=== PATIENT | female | born 1960 | race Hispanic/Latino ===

== ENCOUNTER 2023-10-02 02:16 | Emergency (ER) | payer SELFPAY ==
[2023-10-02 02:54] LABS: Absolute Eosinophils 0.2 K/uL (0-0.5); Absolute Lymphocytes (CBC) 1.5 K/uL (0.7-4.9); Absolute Monocytes 0.8 K/uL (0.1-1.3); Absolute Neutrophil 3.7 K/uL (1.8-8.0); Basophils % 0.5 % (0-1.3); Eosinophils % 3.6 % (0-4.4); Hematocrit 43.8 % (36.0-45.0); Hemoglobin 14.6 g/dL (12.0-15.0); MCH 31.1 pg (27.0-35.0); MCHC 33.4 g/dL (32.0-36.0); MCV 93.3 fL (80-100); MPV 11.2 fL (7.6-11.3); Neutrophils % 58.9 % (41.7-73.7); Nucleated Red Blood Cells % 0.2 % (0-0); Platelets 154 thou/uL (152-406); Red Cell Distribution Width 13.4 % (12.1-15.2)
[2023-10-02] MEDS ORDERED: NA CHLORIDE 0.9% 2,000 ML ONE (03:06)
[2023-10-02 03:21] LABS: ALT/SGPT 19 U/L (13-56); Albumin 3.6 g/dL (3.4-5.0); Albumin/Globulin Ratio 0.9 (1.1-1.8); Alkaline Phosphatase 192 U/L (45-117); Anion Gap 9.1 mEq/L (5.0-15.0); BUN Blood Urea Nitrogen 10 mg/dL (7-18); Bicarbonate 26 mEq/L (21-32); Bilirubin Total 0.5 mg/dL (0.2-1.0); Creatine Phosphokinase 75 U/L (26-192); Globulin 3.9 g/dL (2.3-3.5); Glomerular Filtration Rate 94 ml/min (=/>90); Glucose Level 326 mg/dL (74-106); NT PRO-BNP 89 pg/mL (<125); Protein, Total 7.5 g/dL (6.4-8.2); Sodium Level 133 mEq/L (136-145); Troponin High Sensitivity 4.6 pg/mL (<58.9)
[2023-10-02 03:22] LABS: AST/SGOT 32 U/L (15-37); Bilirubin Direct < 0.2 mg/dL (0-0.2); Bilirubin Indirect, Calculated 0.3 mg/dL (0.2-0.8); Magnesium 2.1 mg/dL (1.6-2.4); Potassium 4.1 mEq/L (3.5-5.1)
[2023-10-02 04:13] LABS: Blood Morphology Comment NOT SEEN (NOT SEEN); Platelet Estimate ADEQ; White Blood Cell Scan OK (OK)
[2023-10-02] MEDS ORDERED: INSULIN REGULAR (HUMAN) 100 UNIT/ML ONE (07:36)
[2023-10-02 07:43] LABS: Thyroid Stimulating Hormone 1.33 uIU/mL (0.358-3.740)
--- NOTE | 2023-10-02 08:53 | RAD REPORT ---
EXAM DESCRIPTION: CT - Chest For Pe Angio - 10/02/2023 7:44 am CLINICAL HISTORY: CHEST PAIN COMPARISON: No comparisons TECHNIQUE: Thin axial CT images of the chest were obtained following administration of iodinated co ntrast intravenously. Multiplanar reconstructions, and maximum intensity projection reconstructions w ere generated and reviewed. Exam utilizes a protocol for optimal evaluation of pulmonary arterial lauren e. All CT scans are performed using dose optimization technique as appropriate and may include automated exposure control or mA/KV adjustment according to patient size. FINDINGS: Incidentally noted left lower pole 3.4 x 2.2 cm heterogeneous thyroid nodule with retroste rnal extension. Pulmonary arteries are normal. No emboli or other suspicious finding. No acute or significant aorta f indings. No mass or infiltrate in the lung parenchyma. No pleural thickening or pleural effusion. No pneumotho rax. No abnormal mediastinal or hilar masses or lymphadenopathy seen. No chest wall mass or abnormal axill iary lymphadenopathy. IMPRESSION: No evidence of acute central pulmonary emboli. Incidentally noted left lower pole 3.4 x 2.2 cm heterogeneous thyroid nodule with retrosternal extens ion, can be further evaluated by dedicated thyroid ultrasound on an outpatient basis, if not previous ly performed. Negative CT scan of the chest for other significant findings.
--- NOTE | 2023-10-02 10:45 | ER ---
Nurse's Notes [facility] Name: Aisha Marquis Age: 62 yrs Sex: Female : 1960 Arrival Date: 10/02/2023 Time: 02:16 Bed 7 Private MD: Diagnosis: Tremor, unspecified;Diabetes mellitus due to underlying condition with hyperglycemia;Thyroid nodule Presentation: 10/01 02:19 Chief complaint: EMS states: Cousin heard her scream then found her on the ground vc1 shaking and foaming at the mouth. 02:19 Coronavirus screen: Client denies travel out of the [place] in the last 14 days. At this vc1 time, the client does not indicate any symptoms associated with coronavirus-19. Ebola Screen: Patient negative for fever greater than or equal to 101.5 degrees Fahrenheit, and additional compatible Ebola Virus Disease symptoms Patient denies exposure to infectious person. Patient denies travel to an Ebola-affected area in the 21 days before illness onset. No symptoms or risks identified at this time. Initial Sepsis Screen: Does the patient meet any 2 criteria? No. Patient's initial sepsis screen is negative. Does the patient have a suspected source of infection? No. Patient's initial sepsis screen is negative. Risk Assessment: Do you want to hurt yourself or someone else? Patient reports no desire to harm self or others. Onset of symptoms was October 02, 2023. 02:19 Method Of Arrival: EMS: [facility] vc1 02:19 Acuity: ROXANNA 3 vc1 02:36 Note Pt states she had 1 seizure a year ago but does not take medicine for them. vc1 Triage Assessment: 02:20 General: Appears comfortable, Behavior is calm, cooperative. Pain: Denies pain. Neuro: ha1 Level of Consciousness is awake, alert, obeys commands, Oriented to person, place, time, situation, Moves all extremities. Full function Pupils are PERRLA, Reports seizure activity states " I do not remember having one but my family members told me I did had one.". Cardiovascular: Capillary refill < 3 seconds Patient's skin is warm and dry. Rhythm is sinus rhythm. Respiratory: Airway is patent Respiratory effort is even, unlabored, Respiratory pattern is regular, symmetrical. GI: Abdomen is round non-distended. : No signs and/or symptoms were reported regarding the genitourinary system. Derm: Skin is pink, warm \\T\\ dry. Musculoskeletal: Circulation, motion, and sensation intact. Range of motion: intact in all extremities. Historical: - Allergies: 02:34 No Known Allergies; vc1 - Home Meds: 02:34 Cinnamon 500 mg oral capsule [Active]; vc1 - PMHx: 02:34 Diabetes mellitus; Hypertensive disorder; vc1 - PSHx: 02:34 None; vc1 - Immunization history:: Adult Immunizations unknown. - Infectious Disease History:: Denies. - Family history:: not pertinent. - Social history:: Smoking status: Patient denies any tobacco usage or history of. Screenin:20 [facility] ED Fall Risk Assessment (Adult) History of falling in the last 3 months, ha1 including since admission No falls in past 3 months (0 pts) Confusion or Disorientation No (0 pts) Intoxicated or Sedated No (0 pts) Impaired Gait No (0 pts) Mobility Assist Device Used No (0 pt) Altered Elimination No (0 pt) Score/Fall Risk Level 0 - 2 = Low Risk Oriented to surroundings, Maintained a safe environment, Educated pt \\T\\ family on fall prevention, incl call for assistance when getting out of bed, Hourly rounding (assess needs \\T\\ fall precautionary measures) done. Abuse screen: Denies threats or abuse. Denies injuries from another. Nutritional screening: No deficits noted. Tuberculosis screening: No symptoms or risk factors identified. Assessment: 02:20 Reassessment: see triage assessment. ha1 03:20 Reassessment: Patient and/or family updated on plan of care and expected duration. Pain ha1 level reassessed. Patient is alert, oriented x 3, equal unlabored respirations, skin warm/dry/pink. Patient denies pain at this time. 04:20 Reassessment: Patient and/or family updated on plan of care and expected duration. Pain ha1 level reassessed. Patient is alert, oriented x 3, equal unlabored respirations, skin warm/dry/pink. 05:20 Reassessment: Patient and/or family updated on plan of care and expected duration. Pain ha1 level reassessed. Patient is alert, oriented x 3, equal unlabored respirations, skin warm/dry/pink. 06:20 Reassessment: Patient and/or family updated on plan of care and expected duration. Pain ha1 level reassessed. Patient is alert, oriented x 3, equal unlabored respirations, skin warm/dry/pink. 07:05 Reassessment: NOTIFIED DR. COLUNGA OF GLUCOSE LEVEL. ha1 07:20 Reassessment: Patient is alert, oriented x 3, equal unlabored respirations, skin aa5 warm/dry/pink. Pt denies any symptoms or complaints. . 07:35 Reassessment: PT to CT via stretcher . aa5 07:55 Reassessment: Pt back from CT scan . aa5 07:55 Reassessment: Patient is alert, oriented x 3, equal unlabored respirations, skin aa5 warm/dry/pink. Patient denies pain at this time. Denies any symptoms/complaints. . 08:00 Reassessment: Pt assisted with bedpan, voided 500mls. . aa5 08:14 Reassessment: Patient is alert, oriented x 3, equal unlabored respirations, skin aa5 warm/dry/pink. Patient denies pain at this time. 09:05 Reassessment: Patient is alert, oriented x 3, equal unlabored respirations, skin aa5 warm/dry/pink. Patient denies pain at this time. Vital Signs: 02:19 BP 162 / 88; Pulse 129; Resp 20; Temp 98.7; Pulse Ox 97% ; Height 5 ft. 2 in. ; vc1 02:45 BP 125 / 94; Pulse 117; Resp 19 S; Pulse Ox 98% on R/A; ha1 03:50 BP 137 / 88; Pulse 105; Resp 19 S; Pulse Ox 98% on R/A; ha1 04:20 BP 142 / 81; Pulse 103; Resp 17 S; Pulse Ox 98% on R/A; ha1 05:20 BP 138 / 78; Pulse 99; Resp 16 S; Pulse Ox 94% on R/A; ha1 05:45 BP 125 / 74; Pulse 90; Resp 17; Pulse Ox 95% on R/A; ha1 06:45 BP 144 / 81; Pulse 63; Resp 17 S; Pulse Ox 97% on R/A; ha1 08:00 BP 130 / 74; Pulse 96; Resp 16 S; Pulse Ox 98% on R/A; aa5 09:10 BP 110 / 71; Pulse 89; Resp 18 S; Pulse Ox 99% on R/A; aa5 11:15 BP 130 / 78; Pulse 100; Resp 22; Temp 97.9; Pulse Ox 98% on R/A; kj2 Carrol Coma Score: 02:19 Eye Response: spontaneous(4). Motor Response: obeys commands(6). Verbal Response: ha1 oriented(5). Total: 15. ED Course: 02:18 Patient arrived in ED. jj6 02:19 Patient has correct armband on for positive identification. Placed in gown. Bed in low ha1 position. Call light in reach. Side rails up X2. Adult w/ patient. Seizure precautions initiated. 02:20 Yinka Colunga MD is Attending Physician. sp4 02:20 Maintain EMS IV. Dressing intact. Good blood return noted. Site clean \\T\\ dry. Gauge \\T\\ good 1 site: 20 G LAC. 02:20 Arm band placed on right wrist. ha1 02:20 EKG completed in triage. Results shown to MD. ha1 02:20 Client placed on continuous cardiac and pulse oximetry monitoring. NIBP monitoring ha1 applied. quality assurance monitor body on. 02:20 Door closed. Noise minimized. Lights dimmed. Warm blanket given. Pillow given. ha1 02:34 Triage completed. vc1 02:36 Basic Metabolic Panel Sent. ha1 03:01 XRAY Chest (1 view) In Process Unspecified. EDMS 03:04 X-ray completed. Portable x-ray completed in exam room. Patient tolerated procedure mh1 well. 03:09 CT Head Brain wo Cont In Process Unspecified. EDMS 03:39 Mari Bethea, RN is Primary Nurse. ha1 03:53 Provided Education on: seizure precaution . ha1 04:39 Assisted with bedpan. bm8 07:06 Report given to Malcolm RN. bm8 07:20 Inserted saline lock: 20 gauge in right antecubital area, using aseptic technique. aa5 ,using aseptic technique. IV started for CT. 07:46 CT Chest For PE Angio In Process Unspecified. EDMS 10:00 Report given to [place] Allen. aa5 11:08 No provider procedures requiring assistance completed. IV discontinued, intact, kj2 bleeding controlled, No redness/swelling at site. Pressure dressing applied. Administered Medications: 03:12 Drug: NS 0.9% IV 1000 ml IV at 125 ml/hr continuous Route: IV; Rate: 125 ml/hr; Site: ha1 left antecubital; 11:14 Follow up: IV Status: Completed infusion; IV Intake: 1000ml cm10 03:12 Drug: NS 0.9% IV 1000 ml IV at 1 bolus Per protocol; 1000 mL bolus Route: IV; Rate: 1 ha1 bolus; Site: left antecubital; 11:14 Follow up: IV Status: Completed infusion; IV Intake: 1000ml cm10 07:56 Drug: Insulin Regular Human IVP 4 units IVP once {Co-Signature: kc6 (Cari Pastor5 RN).} Route: IVP; Site: left antecubital; 11:15 Follow up: Response: No adverse reaction cm10 Medication: 02:20 VIS not applicable for this client. ha1 Intake: 11:14 IV: 1000ml; Total: 1000ml. cm10 11:14 IV: 1000ml; Total: 2000ml. cm10 Outcome: 10:45 Discharge ordered by . jacqui 11:08 Discharged to home with family, [email or web address] 11:08 Condition: stable 11:08 Discharge instructions given to Instructed on Demonstrated understanding of instructions, follow-up care, medications, Prescriptions given X 2, 11:16 Patient left the ED. kj2 Signatures: Dispatcher [employer] EDMS Tejal [place] 1 Mindy Lassiter, RN RN aa5 Leslie Maurice jj6 Jennifer Chinchilla RN RN Shala Rivera MD MD sd2 Mari Bethea RN RN Yinka Delacruz MD MD sp4 Beverley Rivera RN RN cm10 Nate Colunga, RN RN bm8 Tiffany Cleaning RN RN kj2 Cari Pastor RN kc6 Corrections: (The following items were deleted from the chart) 08:14 07:20 Reassessment: Patient is alert, oriented x 3, equal unlabored respirations, skin aa5 warm/dry/pink. aa5
--- NOTE | 2023-10-02 10:45 | EDPHYS ---
Physician Documentation [facility] Name: Aisha Marquis Age: 62 yrs Sex: Female : 1960 Arrival Date: 10/02/2023 Time: 02:16 Bed 7 Private MD: ED Physician Yinka Colunga HPI: 10/01 02:21 This 62 yrs old Female presents to ER via Unassigned with complaints of sp4 Probable Seizure. 07:18 Presents with EMS after she developed seizure-like activity at home while asleep. sp4 Patient's friend says patient was tremoring at home. She has history of uncontrolled diabetes. No history of seizure disorder Not on any medications. Historical: - Allergies: 02:34 No Known Allergies; vc1 - Home Meds: 02:34 Cinnamon 500 mg oral capsule [Active]; vc1 - PMHx: 02:34 Diabetes mellitus; Hypertensive disorder; vc1 - PSHx: 02:34 None; vc1 - Immunization history:: Adult Immunizations unknown. - Infectious Disease History:: Denies. - Family history:: not pertinent. - Social history:: Smoking status: Patient denies any tobacco usage or history of. ROS: 07:18 Constitutional: Negative for fever, chills, and weight loss, positive for tremors at sp4 home Eyes: Negative for injury, pain, redness, and discharge, 07:18 All other systems are negative, Exam: 07:18 Constitutional: This is a well developed, well nourished patient who is awake, alert, sp4 and in no acute distress. Head/Face: Normocephalic, atraumatic. Eyes: Pupils equal round and reactive to light, extra-ocular motions intact. Lids and lashes normal. Conjunctiva and sclera are not injected. Cornea within normal limits. Periorbital areas with no swelling, redness, or edema. ENT: Nares patent. No nasal discharge, no septal abnormalities noted. Tympanic membranes are normal and external auditory canals are clear. Oropharynx with no redness, swelling, or masses, exudates, or evidence of obstruction, uvula midline. Mucous membranes moist. Neck: Trachea midline, no thyromegaly or masses palpated, and no cervical lymphadenopathy. Supple, full range of motion without nuchal rigidity, or vertebral point tenderness. Chest/axilla: Normal chest wall appearance and motion. Nontender with no deformity. No lesions are appreciated. Cardiovascular: Regular rate and rhythm with a normal S1 and S2. No gallops, murmurs, or rubs. Normal PMI, no JVD. No pulse deficits. Respiratory: Lungs have equal breath sounds bilaterally, clear to auscultation and percussion. No rales, rhonchi or wheezes noted. No increased work of breathing, no retractions or nasal flaring. Abdomen/GI: Soft, with normal bowel sounds. No distension or tympany. No guarding or rebound. No evidence of tenderness throughout. Back: No spinal tenderness. No costovertebral tenderness. Skin: Warm, dry with normal turgor. Normal color with no rashes, no lesions, and no evidence of cellulitis. MS/ Extremity: Pulses equal, no cyanosis. Neurovascular intact. Full, normal range of motion. Neuro: Awake and alert, GCS 15, oriented to person, place, time, and situation. Cranial nerves II-XII grossly intact. Motor strength 5/5 in all extremities. Sensory grossly intact. Psych: Awake, alert, with orientation to person, place and time. Behavior, mood, and affect are within normal limits 07:18 ECG was reviewed by the Attending Physician. EKG at 0 229 reveals sinus tachycardia at rate of 124 Vital Signs: 02:19 BP 162 / 88; Pulse 129; Resp 20; Temp 98.7; Pulse Ox 97% ; Height 5 ft. 2 in. ; vc1 02:45 BP 125 / 94; Pulse 117; Resp 19 S; Pulse Ox 98% on R/A; ha1 03:50 BP 137 / 88; Pulse 105; Resp 19 S; Pulse Ox 98% on R/A; ha1 04:20 BP 142 / 81; Pulse 103; Resp 17 S; Pulse Ox 98% on R/A; ha1 05:20 BP 138 / 78; Pulse 99; Resp 16 S; Pulse Ox 94% on R/A; ha1 05:45 BP 125 / 74; Pulse 90; Resp 17; Pulse Ox 95% on R/A; ha1 06:45 BP 144 / 81; Pulse 63; Resp 17 S; Pulse Ox 97% on R/A; ha1 08:00 BP 130 / 74; Pulse 96; Resp 16 S; Pulse Ox 98% on R/A; aa5 09:10 BP 110 / 71; Pulse 89; Resp 18 S; Pulse Ox 99% on R/A; aa5 11:15 BP 130 / 78; Pulse 100; Resp 22; Temp 97.9; Pulse Ox 98% on R/A; kj2 Carrol Coma Score: 02:19 Eye Response: spontaneous(4). Motor Response: obeys commands(6). Verbal Response: ha1 oriented(5). Total: 15. MDM: 02:46 Patient medically screened. sp4 06:41 ED course: EXAMINATION: CT HEAD WITHOUT IV CONTRAST INDICATION: Female, 62 years old, sp4 possible seizure COMPARISON(S): None. TECHNIQUE: CT acquisition of the head without contrast. Coronal and sagittal reformatted images provided. This exam was performed according to departmental dose-optimization program which includes automated exposure control, adjustment of the mA and/or kV according to patient size, and/or use of iterative reconstruction technique. FINDINGS: Suboptimal planes of acquisition and reformation limit assessment. Brain: No evidence of hemorrhage, mass effect, or midline shift. Multiple patchy periventricular white matter hypodensities within the frontal and parietal lobes. CSF Spaces: Unremarkable. Osseous: No acute findings. Soft tissue: No evidence of scalp or soft tissue injury. Orbits: The globes and orbits are unremarkable. Sinuses/Mastoids: Visualized portions are clear. IMPRESSION: Patchy periventricular white matter hypo densities most commonly due to chronic microangiopathy, although distribution is slightly atypical and no prior imaging is available for comparison. Correlate with symptoms and consider MRI for further characterization if there is sufficient clinical concern Electronically signed by: Dawson Carty MD 10/02/2023 04:05 AM. ED course: EXAM: XR Chest 1 ViewAP 10/02/2023 at 2:35 AM HISTORY: seizure COMPARISON: None TECHNIQUE: Chest 1 ViewAP FINDINGS: Superior mediastinal (paratracheal) soft tissue widened density measures 7.6 cm. Causes include substernal enlarged thyroid (goiter), tortuous great vessels, mediastinal lipomatosis, enlarged mediastinal lymph nodes, or neoplasm. Heart size and pulmonary vessels within normal limits. Possible, hazy, left lower lung field opacity. No significant pleural effusion or pneumothorax. Osteopenia or diffuse decreased bone density. Thoracic spine degenerative disease. IMPRESSION: 1. Possible, hazy, left lower lung field opacity. No old exam available for comparison. Causes include pericardial fat pad, subsegmental atelectasis, scar/fibrosis, and infection. 2. Superior mediastinal (paratracheal) soft tissue widened density measures 7.6 cm. Causes include substernal enlarged thyroid (goiter), tortuous great vessels, mediastinal lipomatosis, enlarged mediastinal lymph nodes, or neoplasm. If clinically indicated, then CT chest with contrast may be helpful. . 07:23 Differential diagnosis: cardiac arrhythmia, seizure, TIA. Data reviewed: vital signs, sp4 nurses notes, EMS record, old medical records, lab test result(s), EKG, radiologic studies, CT scan. Consideration of Admission/Observation Escalation of care including admission/observation considered. Transition of care: After a detail discussion of the patient's case, care is transferred to Shala Arredondo MD. 07:26 ED course: Patient has what appears to be superior mediastinal soft tissue widening sp4 possibly thyroid mass. We have added CT chest and thyroid panel to further investigate this problem. Patient also has history of uncontrolled diabetes patient was prescribed metformin and glipizide for the next 3 months and will refer patient to Dr. Bone with [facility] . 10/01 02:21 Order name: Basic Metabolic Panel; Complete Time: 04:18 sp4 10/01 02:21 Order name: CBC with Diff; Complete Time: 04:18 sp4 10/01 02:21 Order name: LFT's; Complete Time: 04:18 sp4 10/01 02:21 Order name: Magnesium; Complete Time: 04:18 sp4 10/01 02:21 Order name: NT PRO-BNP; Complete Time: 04:18 sp4 10/01 02:21 Order name: Troponin HS; Complete Time: 04:18 sp4 10/01 02:21 Order name: Lactate w/ 2H reflex if indic.; Complete Time: 04:18 sp4 10/01 02:21 Order name: CK; Complete Time: 04:18 sp4 10/01 04:13 Order name: CBC Smear Scan; Complete Time: 04:18 EDMS 10/01 06:43 Order name: TSH; Complete Time: 07:55 sp4 10/01 06:43 Order name: T4 Free; Complete Time: 07:55 sp4 10/01 07:09 Order name: Glucose, Ancillary Testing; Complete Time: 07:23 EDMS 10/01 02:21 Order name: XRAY Chest (1 view) 4 10/01 02:21 Order name: CT Head Brain wo Cont 4 10/01 06:44 Order name: CT Chest For PE Angio 4 10/01 02:21 Order name: EKG; Complete Time: 02:21 sp4 10/01 02:21 Order name: Cardiac monitoring; Complete Time: 02:36 [facility] 10/01 02:21 Order name: EKG - Nurse/Tech; Complete Time: 02:36 4 10/01 02:21 Order name: IV Saline Lock; Complete Time: 02:36 4 10/01 02:21 Order name: Labs collected and sent; Complete Time: 02:36 4 10/01 02:21 Order name: O2 Per Protocol; Complete Time: 02:36 4 10/01 02:21 Order name: O2 Sat Monitoring; Complete Time: 02:36 [facility] 10/01 06:46 Order name: Accucheck Blood Glucose; Complete Time: 07:06 sp4 EC:18 Rate is 124 beats/min. Rhythm is regular, Sinus tachycardia. QRS Rudyard is Normal. AR sp4 interval is normal. QRS interval is normal. QT interval is normal. No Q waves. T waves are Normal. No ST changes noted. Clinical impression: No evidence of ischemia. Interpreted by me. Reviewed by me. Administered Medications: 03:12 Drug: NS 0.9% IV 1000 ml IV at 125 ml/hr continuous Route: IV; Rate: 125 ml/hr; Site: 1 left antecubital; 11:14 Follow up: IV Status: Completed infusion; IV Intake: 1000ml cm10 03:12 Drug: NS 0.9% IV 1000 ml IV at 1 bolus Per protocol; 1000 mL bolus Route: IV; Rate: 1 ha1 bolus; Site: left antecubital; 11:14 Follow up: IV Status: Completed infusion; IV Intake: 1000ml cm10 07:56 Drug: Insulin Regular Human IVP 4 units IVP once {Co-Signature: kc6 (Cari Pastor aa5 RN).} Route: IVP; Site: left antecubital; 11:15 Follow up: Response: No adverse reaction cm10 Disposition Summary: 10/02/23 10:45 Discharge Ordered Problem: new sd2 Symptoms: have improved sd2 Condition: Stable sd2 Diagnosis - Tremor, unspecified sd2 - Diabetes mellitus due to underlying condition with hyperglycemia sd2 - Thyroid nodule sd2 Followup: sd2 - With: Private Physician - When: 2 - 3 days - Reason: Recheck today's complaints, Continuance of care, Re-evaluation by your physician Discharge Instructions: - Discharge Summary Sheet sp4 - Diabetes Mellitus Basics sp4 Forms: - Medication Reconciliation Form sd2 - Antibiotic Education sd2 - Prescription Opioid Use sd2 - Patient Portal Instructions sd2 - Leadership Thank You Letter sd2 Prescriptions: - Glipizide 5 mg Oral tablet - take 1 tablet ORAL route once daily before a meal; 90 tablet; Refills: 0, sp4 Product Selection Permitted - Metformin 1,000 mg Oral tablet - take 1 tablet ORAL route every 12 hours with morning and evening meals; 180 sp4 tablet; Refills: 0, Product Selection Permitted Signatures: Dispatcher [employer] Mindy Shane RN RN aa5 Jennifer Chinchilla RN RN vc1 Shala Arredondo MD MD sd2 Mari Bethea RN RN ha1 Yinka Colunga MD MD sp4 Beverley Rivera RN cm10 Cari Pastor RN kc6 Corrections: (The following items were deleted from the chart) 02:21 02:21 BASIC METABOLIC PANEL+C.LAB.BRZ ordered. EDMS EDMS 02:21 02:21 CBC+H.LAB.BRZ ordered. EDMS EDMS 02:21 02:21 HEPATIC FUNCTION+C.LAB.BRZ ordered. EDMS EDMS 02:21 02:21 MAGNESIUM+C.LAB.BRZ ordered. EDMS EDMS 02:21 02:21 PROBNP+C.LAB.BRZ ordered. EDMS EDMS 02:21 02:21 Troponin High Sensitivity+C.LAB.BRZ ordered. EDMS EDMS 06:43 06:43 THYROID STIMULAT HORMONE+C.LAB.BRZ ordered. EDMS EDMS 06:43 06:43 T4 FREE+C.LAB.BRZ ordered. EDMS EDMS
[2023-10-02 11:50] VITALS: BP 130/78; TEMP 97.9; O2SAT 98
--- NOTE | 2023-10-03 10:02 | EKG ---
Test Date: 2023-10-02 Test Time: 02:29:04 Shank Maker: KAVITHA MEASUREMENT RESULTS: Intervals: Rate: 124 CO: 140 QRSD: 78 QT: 324 QTc: 465 [place]: P: 142 CO: 140 QRS: 114 T: 115 INTERPRETIVE STATEMENTS: Suspect arm lead reversal, interpretation assumes no reversal Unusual P axis, possible ectopic atrial tachycardia Septal infarct, age undetermined Lateral infarct, age undetermined Abnormal ECG No previous ECG available for comparison Electronically Signed On 10-03-23 10:00:26 CDT by Jeremy Garcia
--- NOTE | 2023-10-03 13:19 | RAD REPORT ---
EXAM DESCRIPTION: RAD - Chest Single View - 10/02/2023 2:59 am CLINICAL HISTORY: Seizure COMPARISON: None TECHNIQUE: Chest 1 View AP FINDINGS: Superior mediastinal (paratracheal) soft tissue widened density measures 7.6 cm. Causes include substernal enlarged thyroid (goiter), tortuous great vessels, mediastinal lipomatosis, enlarged mediastinal lymph nodes, or neoplasm. Heart size and pulmonary vessels within normal limits. Possible, hazy, left lower lung field opacity. No significant pleural effusion or pneumothorax. Osteopenia or diffuse decreased bone density. Thoracic spine degenerative disease. IMPRESSION: 1. Possible, hazy, left lower lung field opacity. No old exam available for comparison. Causes include pericardial fat pad, subsegmental atelectasis, scar/fibrosis, and infection. 2. Superior mediastinal (paratracheal) soft tissue widened density measures 7.6 cm. Causes include substernal enlarged thyroid (goiter), tortuous great vessels, mediastinal lipomatosis, enlarged mediastinal lymph nodes, or neoplasm. If clinically indicated, then CT chest with contrast may be helpful. Electronically signed by: Stefano Hunter MD 10/02/2023 03:46 AM CDT Due to temporary technical issues with the PACS/Fluency reporting system, reports are being signed by the in house radiologist without review as a courtesy to ensure prompt reporting. The interpreting r adiologist is fully responsible for the content of the report.
--- NOTE | 2023-10-03 13:47 | RAD REPORT ---
EXAM DESCRIPTION: CT - Head Brain Wo Cont - 10/02/2023 6:41 am CLINICAL HISTORY: Female, 62 years old, possible seizure COMPARISON: None. TECHNIQUE: CT acquisition of the head without contrast. Coronal and sagittal reformatted images prov ided. This exam was performed according to departmental dose-optimization program which includes auto mated exposure control, adjustment of the mA and/or kV according to patient size, and/or use of itera tive reconstruction technique. FINDINGS: Suboptimal planes of acquisition and reformation limit assessment. Brain: No evidence of hemorrhage, mass effect, or midline shift. Multiple patchy periventricular whit e matter hypodensities within the frontal and parietal lobes. CSF Spaces: Unremarkable. Osseous: No acute findings. Soft tissue: No evidence of scalp or soft tissue injury. Orbits: The globes and orbits are unremarkable. Sinuses/Mastoids: Visualized portions are clear. IMPRESSION: Patchy periventricular white matter hypodensities most commonly due to chronic microangi opathy, although distribution is slightly atypical and no prior imaging is available for comparison. Correlate with symptoms and consider MRI for further characterization if there is sufficient clinical concern Electronically signed by: Dawson Carty MD 10/02/2023 04:05 AM CDT RP Due to temporary technical issues with the PACS/Fluency reporting system, reports are being signed by the in house radiologist without review as a courtesy to ensure prompt reporting. The interpreting r adiologist is fully responsible for the content of the report.
== END 2023-10-02 11:16 | disposition home or self-care (01) ==
LOC: ER 02:16
DX: R25.1 Tremor, unspecified (principal); E08.65 Diabetes mellitus due to underlying condition with hyperglycemia; E04.1 Nontoxic single thyroid nodule
CPT/HCPCS: 36415; 70450; 71045; 71275; 80048; 80076; 82550; 82947; 83605; 83735; 83880; 84439; 84443; 84484; 85025; 93005; 96361; 96374; 99285; J7030; Q9967